=== PATIENT | male | born 1975 | race Caucasian/White ===

== ENCOUNTER 2019-07-18 08:26 | Emergency (ER) | payer BC ==
[~2019-07-18] VITALS: Ht 177.8 cm; Wt 89.9 kg
[2019-07-18] MEDS ORDERED: VITAMIN C100 MG PO (08:53)
[2019-07-18] MEDS ORDERED: SUPER THERAVIT1 EACH PO (08:53)
[2019-07-18] MEDS ORDERED: FISH OIL 1,0001 EAC9 PO (08:54)
[2019-07-18 09:03] LABS: ABSOLUTE NEUTROPHILS 5.1 thou/uL (1.4-8.2); BASOPHILS 0.3 % (0.0-2.0); EOSINOPHILS 1.3 % (0.0-3.0); HEMATOCRIT 46.7 % (42.0-52.0); HEMOGLOBIN 16.5 gm/dL (14.0-18.0); LYMPHOCYTES 25.7 % (24.0-44.0); MCH 31.7 pg (26.0-34.0); MCHC 35.3 g/dL (28.0-37.0); MCV 89.8 fL (80.0-100.0); MONOCYTES 5.7 % (1.0-8.0); PLATELET COUNT 188 thou/uL (150-400); RDW 13.4 % (10.5-14.5); WBC 7.6 thou/uL (4.0-11.0)
[2019-07-18 09:10] LABS: ANION GAP 5 mmol/L (7-16); BUN 19 mg/dL (7-18); CALCIUM 9.3 mg/dL (8.5-10.1); CHLORIDE 99 mmol/L (98-107); CO2 33 mmol/L (21-32); GLUCOSE 108 mg/dL (74-106); POTASSIUM 4.2 mmol/L (3.5-5.1); SODIUM 137 mmol/L (136-145)
[2019-07-18 09:20] LABS: ALBUMIN 4.2 g/dL (3.4-5.0); SGPT 42 U/L (30-65); TOTAL BILIRUBIN 0.7 mg/dL (0.2-1.0); TOTAL PROTEIN 8.8 g/dL (6.4-8.2)
[2019-07-18 09:36] LABS: SGOT 30 U/L (15-37); TROPONIN-I <0.06 ng/mL (<0.06)
[2019-07-18] MEDS ORDERED: PROTONIX40 M2 PO (10:29)
[2019-07-18 10:44] VITALS: BP 126/84
--- NOTE | 2019-07-18 14:04 | EKG ---
[facility] [place] [address] ELECTROCARDIOGRAM REPORT Name: KENN MENARD [facility] #: [id number] Admission: 07/18/19 Attend Phys: Discharge: 07/18/19 Date of : 71 Report #: [id number] THIS REPORT FOR: cc: KENNETH - Abiola family physician/PCP KENNETH - Abiola family physician/PCP Kevin Lazar MD ~ THIS REPORT FOR: //name// [facility] ED Test Date: 2019-07-18 Test Time: 08:30:41 Pat Name: KENN SAWANT Department: Room: Gender: [employer]: ESHEETS : 1975 Requested By: Aleksandar [place] Order Number: [id number] MD: Kevin Lazar Measurements Intervals [place] Rate: 79 P: 36 [place]: 156 QRS: -10 QRSD: 93 T: 0 QT: 354 QTc: 406 Interpretive Statements Sinus rhythm No previous ECG available for comparison Electronically Signed On 07-18-2019 14:02:48 CDT by Kevin Lazar [email or web address] <ELECTRONICALLY SIGNED> By: Kevin Lazar MD 07/18/19 1402 9 9 Kevin Lazar MD /SCOT
== END 2019-07-18 10:45 | disposition home or self-care (01) ==
LOC: ER 08:26
PROVIDERS: Emergency Medicine
DX: R07.9 Chest pain, unspecified (principal); R06.02 Shortness of breath; Z79.899 Other long term (current) drug therapy